=== PATIENT | female | born 1995 | race Two or more races ===

== ENCOUNTER 2023-09-11 00:05 | Emergency (ER) | payer SELFPAY ==
[~2023-09-11] VITALS: Ht 163.8 cm; Wt 92.3 kg
[2023-09-11 00:13] VITALS: BP 107/70; PULSE 82; RESP 18; TEMP 98.2; O2SAT 100
[2023-09-11] MEDS ORDERED: DIPH25CA83 MT (01:43)
[2023-09-11] MEDS ORDERED: HYDR453.3 TP (01:43)
== END 2023-09-11 01:55 | disposition home or self-care (01) ==
LOC: ER 00:05
DX: S40.862A Insect bite (nonvenomous) of left upper arm, initial encounter (principal); S40.861A Insect bite (nonvenomous) of right upper arm, initial encounter; W57.XXXA Bitten or stung by nonvenomous insect and other nonvenomous arthropods, initial encounter; Y93.89 Activity, other specified; Y92.89 Other specified places as the place of occurrence of the external cause; Y99.8 Other external cause status
CPT/HCPCS: 99282

== ENCOUNTER 2023-12-21 10:14 | Emergency (ER) | payer MEDICAID ==
[~2023-12-21] VITALS: Ht 167.6 cm; Wt 82.0 kg
[~2023-12-21 10:14] MED LIST: DIPH25CA83 MT; HYDR453.3 TP
[2023-12-21 10:16] VITALS: O2SAT 99
[2023-12-21 10:53] LABS: BASOPHILS % 0.6 % (0.0-2.0); EOSINOPHILS % 0.5 % (0.0-5.0); HEMATOCRIT. 39.4 % (36.0-48.0); HEMOGLOBIN. 12.8 g/dL (12.0-16.0); LYMPHOCYTES % 21.3 % (20.0-50.0); MEAN CORPUSCULAR HEMOGLOBIN 29.4 pg (28.0-32.0); MEAN CORPUSCULAR HGB CONC 32.5 g/dL (31.0-37.0); MEAN CORPUSCULAR VOLUME 90.4 fL (81.0-99.0); MEAN PLATELET VOLUME 8.8 fl (7.4-10.4); MONOCYTES % 10.3 % (2.0-8.0); NEUTROPHILS % 67.3 % (40.0-76.0); PLATELET 269 x1000/uL (130-400); RED BLOOD CELL COUNT 4.36 mill/uL (4.2-5.4); RED CELL DISTRIBUTION WIDTH 14.3 % (11.6-14.6); WHITE BLOOD COUNT 8.7 x1000/uL (4.5-11.0)
[2023-12-21 11:04] LABS: CARBON DIOXIDE 23 mEq/L (21-32); CHLORIDE 106 mEq/L (98-107); POTASSIUM 3.7 mEq/L (3.5-5.1); PROTHROMBIN TIME 10.9 sec (9.6-11.0); SODIUM 137 mEq/L (136-145)
[2023-12-21 11:05] LABS: CALCIUM 9.6 mg/dL (8.7-10.4)
[2023-12-21 11:10] LABS: CREATININE 0.8 mg/dL (0.6-1.0); GLUCOSE 126 mg/dL (70-105); UREA NITROGEN BLOOD 7 mg/dL (9-23)
[2023-12-21 11:11] LABS: ALANINE AMINOTRANSFERASE 27 IU/L (10-49); ASPARTATE AMINOTRANSFERASE 23 IU/L (<34)
[2023-12-21 11:12] LABS: ACETAMINOPHEN 71 ug/mL (10-30); ALBUMIN 4.8 g/dL (3.2-4.8); BILIRUBIN DIRECT 0.2 mg/dL (<=3.0); BILIRUBIN TOTAL 0.5 mg/dL (0.1-1.0); PROTEIN TOTAL 7.7 g/dL (6.0-8.3)
[2023-12-21 12:03] LABS: HCG SCREEN NEGATIVE
[2023-12-21] MEDS ORDERED: LORAZEPAM 1MG TABLET PO ONE (14:00)
[2023-12-21] MEDS: HALOPERIDOL LACTATE 5MG/ML VIAL IM ONE (14:21)
[2023-12-21] MEDS: LORAZEPAM 2MG/ML INJ IM ONE (14:21)
[2023-12-21 15:55] LABS: *AMPHETAMINES SCREEN URINE NEGATIVE (NEGATIVE); *BARBITURATES SCREEN URINE NEGATIVE (NEGATIVE); *COCAINE SCREEN URINE NEGATIVE (NEGATIVE); ECSTASY MDMA SCREEN URINE NEGATIVE (NEGATIVE); METHADONE URINE SCREEN NEGATIVE (NEGATIVE); OPIATES URINE SCREEN NEGATIVE (NEGATIVE)
[2023-12-21 17:14] LABS: *BENZODIAZEPINES SCREEN URINE NEGATIVE (NEGATIVE); PHENCYCLIDINE URINE SCREEN NEGATIVE (NEGATIVE)
[2023-12-21 17:15] LABS: CANNABINOID URINE SCREEN PRESUMPTIVE POSITIVE (NEGATIVE)
[2023-12-21] MEDS: LORAZEPAM 1MG TABLET PO ONE (19:24)
[2023-12-22] MEDS: LORAZEPAM 1MG TABLET PO ONE ×2 (10:22→21:54)
[2023-12-22 16:12] LABS: CLARITY URINE CLEAR (CLEAR); COLOR URINE YELLOW (YELLOW); GLUCOSE URINE NEGATIVE (NEGATIVE); KETONES URINE 1+ (NEGATIVE); LEUKOCYTE ESTERASE URINE 1+ (NEGATIVE); NITRITE URINE NEGATIVE (NEGATIVE); OCCULT BLOOD URINE 1+ (NEGATIVE); PROTEIN URINE NEGATIVE (NEGATIVE); SPECIFIC GRAVITY URINE 1.025 (1.005-1.030)
[2023-12-22 17:11] LABS: BACTERIA URINE 1+; SQUAMOUS EPITHELIAL CELL URINE 1+ /lpf (RARE/1+)
[2023-12-22 21:35] VITALS: BP 104/58; PULSE 68; RESP 16; TEMP 97.3
== END 2023-12-22 21:58 | disposition short-term general hospital (02) ==
LOC: ER 10:14 → EDBEDREQ 13:07 → CANBEDREQ 16:07 → ER 12-22 21:58
DX: R45.851 Suicidal ideations (principal); Z20.822 Contact with and (suspected) exposure to COVID-19
CPT/HCPCS: 80076; 80305; 80048; 81025; 80307; 80329; 80320; 84703; 85025; 85610; 36415; 93005; 96372; 99285; 87426; 81003; J1630; J2060; G0480